=== PATIENT | female | born 1990 | race Caucasian/White ===

== ENCOUNTER 2019-07-21 16:36 | Outpatient (CLI) | payer MEDICAID, SELFPAY ==
[2019-07-21 17:01] VITALS: BMI 40.9
[2019-07-21 17:52] LABS: Add Urine Microscopic? NO
[2019-07-21 18:21] LABS: Bilirubin Urine Neg (NEGATIVE); Blood Urine Neg (Negative); Glucose Urine UA Norm (Normal); Ketones Urine Negative (Negative); Leukocyte Esterase Urine Negative (Negative); Nitrate Urine Negative (Negative); Protein Urine Neg (Negative); Specific Gravity, Urine 1.025 (1.005-1.030); Urine Appearance Clear (CLEAR); Urine Color Yellow (Yellow); Urobilinogen Urine 1 mg/dL (Negative); pH Urine 5 (5-7)
[2019-07-21 18:32] VITALS: BP 116/69; PULSE 90; RESP 18; TEMP 36.7
[2019-07-21 18:39] VITALS: BP 116/69; PULSE 90; RESP 18; TEMP 36.7
== END 2019-07-21 18:52 | disposition home or self-care (01) ==
LOC: OPOB 16:54 → OBGYN 18:41 → OPOB 07-24 17:37
PROVIDERS: Family Provider Family Medicine; PCP Family Medicine; Visit Provider Family Medicine
DX: O26.899 Other specified pregnancy related conditions, unspecified trimester (principal); Z3A.00 Weeks of gestation of pregnancy not specified; R10.9 Unspecified abdominal pain
CPT/HCPCS: 81003; 99211

== ENCOUNTER 2019-09-06 16:00 | Outpatient (CLI) | payer MEDICAID, SELFPAY ==
[2019-09-06] VITALS (18 sets, daily range): BP systolic 0–134; BP diastolic 0–82; PULSE 87–109; TEMP 36.9; BMI 41.8
[2019-09-06 16:59] LABS: Nitrazine Paper, PH Negative
[2019-09-06 17:29] LABS: Urine Appearance Clear (CLEAR); Urine Color Yellow (Yellow); pH Urine 7 (5-7)
[2019-09-06 17:30] LABS: Add Urine Culture? No; Bacteria Urine 1+; Bilirubin Urine Neg (NEGATIVE); Blood Urine 2+ (Negative); Glucose Urine UA Norm (Normal); Ketones Urine Negative (Negative); Leukocyte Esterase Urine Trace (Negative); Mucus Urine 1+; Nitrate Urine Negative (Negative); Protein Urine Neg (Negative); RBC Urine 0-4 /hpf (0-2); Urobilinogen Urine Norm (Negative)
--- NOTE | 2019-09-06 18:02 | PC.NURSE ---
PT IS HARD OF HEARING
[2019-09-09 08:21] VITALS: BP 118/73; PULSE 112
== END 2019-09-06 19:30 | disposition home or self-care (01) ==
LOC: OPOB 16:32 → OBGYN 17:12 → OPOB 09-09 08:06
PROVIDERS: Family Provider Family Medicine; PCP Family Medicine; Visit Provider Family Medicine
DX: O26.899 Other specified pregnancy related conditions, unspecified trimester (principal); Z3A.00 Weeks of gestation of pregnancy not specified; R10.9 Unspecified abdominal pain
CPT/HCPCS: 81001; 83986; 99211; A9270

== ENCOUNTER 2019-09-09 07:55 | Outpatient (CLI) | payer MEDICAID, SELFPAY ==
[2019-09-09 08:00] VITALS: BMI 42.0
[2019-09-09 08:30] VITALS: TEMP 36.9
[2019-09-09 09:33] VITALS: BP 109/69; PULSE 101; RESP 17; TEMP 36.9
== END 2019-09-09 09:33 | disposition home or self-care (01) ==
LOC: OPOB 08:37 → OBGYN 09:30 → OPOB 09-10 08:45
PROVIDERS: Family Provider Family Medicine; PCP Family Medicine; Visit Provider Family Medicine
DX: O26.899 Other specified pregnancy related conditions, unspecified trimester (principal); Z3A.00 Weeks of gestation of pregnancy not specified; N89.8 Other specified noninflammatory disorders of vagina
CPT/HCPCS: 59025; 59409; 83986; 99211; A9270

== ENCOUNTER 2019-09-10 00:43 | Inpatient (IN) | payer MEDICAID, SELFPAY ==
[2019-09-09 23:45] VITALS: RESP 18; TEMP 36.7
[2019-09-09 23:46] VITALS: BP 134/95; PULSE 107
[2019-09-09 23:47] VITALS: BP 128/77; PULSE 112
[2019-09-10] VITALS (25 sets, daily range): BP systolic 102–135; BP diastolic 55–80; PULSE 90–108; RESP 15–19; TEMP 36.5–37.1; O2SAT 96–99; BMI 41.7
[2019-09-10 00:14] LABS: Basophils # 0.1 10^3/uL (0.0-0.1); Basophils % 0.3 %; Eosinophils # 0.2 10^3/uL (0.0-0.8); Eosinophils % 1.1 %; Hematocrit 32.1 % (37.0-47.0); Hemoglobin 10.2 g/dL (11.5-15.3); Lymphocytes # 2.5 10^3/uL (0.8-4.8); Mean Corpuscular HGB Conc 31.8 g/dL (30.0-36.0); Mean Corpuscular Volume 84.9 fL (81-99); Mean Platelet Volume 10.9 fL (7.4-10.4); Monocytes # 1.4 10^3/uL (0.2-0.9); Monocytes % 7.8 %; Neutrophils # 13.2 10^3/uL (1.8-7.7); Neutrophils % 74.4 %; Nucleated Red Blood Cells % 0 %; Platelet Count 243 10^3/cmm (130-400); Red Blood Count 3.78 10^6/uL (4.1-5.3); Red Cell Distribution Width 14.7 % (12.1-15.1); White Blood Count 17.7 10^3/uL (4.0-10.0)
[2019-09-10] MEDS: metoclopramide 5 mg/mL SDV 2 mL 10 MG IV (00:18)
[2019-09-10] MEDS: lactated ringers 1,000 ML 999 ML IV ×2 (00:18→01:19)
[2019-09-10] MEDS: famotidine 20 mg/2 mL INJ IVP (00:18)
[2019-09-10] MEDS: citric acid-sodium citrate 30 mL UDC PO (00:18)
--- NOTE | 2019-09-10 00:18 | ANES.PREANE2 ---
Pre-Anesthetic Assessment Pre-Anesthetic Assessment: Height/Weight: Height 1.57 m Pulse BP 112 H 128/77 09/09/19 23:47 09/09/19 23:47 Preop Diagnosis: previous C section Proposed Procedure: C section Was [place] taken within 24 hours: N/A Last Intake: 22:30 Social: Social History: Tobacco (1) and No alcohol Packs per day: 1 Pack years: 4 Exam: Pre-Anes Outpt Exam: alert, oriented x 3, clear to auscultation bilaterally and regular rate & rhythm Airway: Submandibular: WNL Cervical ROM: WNL MP: 2 Dentition: Full Pulmonary: Pulmonary: Asthma CV/HEM: CV/HEM: None reported : : None reported Hepatic: Hepatic: None reported GI: GI: GERD Metabolic: Metabolic: None reported Musc/skel: Musc/skel: None reported Neuropsych: Neuropsych: Anxiety and Depression Anesthetic Plan: ASA status: 2E Anesthesia: Regional (specify below) (SAB) Risk of > 500 ml blood loss (7ml/kg in children): Yes, adequate IV access and fluids planned Data Anesthesia CBC & Chem 7: 09/09/19 00:01 Other Labs: Laboratory Results - last 48 hr 09/09/19 00:01 WBC 17.7 H RBC 3.78 L Hgb 10.2 L Hct 32.1 L MCV 84.9 MCH 27.0 L MCHC 31.8 RDW 14.7 Plt Count 243 MPV 10.9 H Neut % (Auto) 74.4 Lymph % (Auto) 14.0 [place] % (Auto) 7.8 Eos % (Auto) 1.1 Baso % (Auto) 0.3 Neut # (Auto) 13.2 H Lymph # (Auto) 2.5 [place] # (Auto) 1.4 H Eos # (Auto) 0.2 Baso # (Auto) 0.1 Nucleated RBC % (auto) 0 Nucleated RBCs # 0.0 Cardiac Studies: No Data to Display
--- NOTE | 2019-09-10 00:32 | PM.HP ---
Providers/Chief Complaint Primary Care Provider: Jayy Otto MD Chief Complaint: abd pain History of Present Illness Stephanie Rodriguez is a 29 year old female who has had 3 previous sections. She is 36 weeks and 3 days gestation. She presented late the evening of admission with contractions beginning about 6 PM. She arrived [facility] labor and delivery and was evaluated and found to be approximately 3 cm dilated and britney every 3 to 4 minutes. She has been in to OB the last couple of days approximately 3 times with contractions off and on but had made no cervical change prior to the evening of admission. There is been no significant problems through her course. She does desire tubal ligation and had discussed with this physician and then was Dr. Flores and signed a permit form on 08/21/2019. Review of Systems General: Reports: 10 or more systems reviewed and unremarkable except in HPI and below Const: Denies: fever, chills or fatigue ENMT: Denies: throat pain or dental pain Card: Denies: chest pain, palpitations, irregular heart rhythm or edema Resp: Denies: shortness of breath, productive cough or wheezing GI: Reports: abdominal pain (Contractions off and on.); Denies: painful bowel movements : Reports: pelvic pain (Contractions.); Denies: flank pain Musc: Reports: back pain; Denies: neck pain Neuro: Denies: headache, numbness in extremities, changes in sensation, difficulty walking or slurred speech Psych: Reports: anxiety Medications/Allergies Allergies Allergy/AdvReac Type Severity Reaction Status Date / Time azathioprine [From Imuran] Allergy ALGY-Hives Verified 07/21/19 17:04 Sulfa (Sulfonamide Allergy ALGY-Hives Verified 07/21/19 17:04 Antibiotics) vancomycin Allergy ALGY-Anaphy Verified 07/21/19 17:04 laxis Vitals/I&O/Wt Last Vital Signs Pulse 112 H 09/09/19 23:47 BP 128/77 09/09/19 23:47 Physical Exam Const: COMMON NORMALS: no apparent distress (Obviously uncomfortable with contractions.) HENMT: COMMON NORMALS: moist oral mucous membranes Neck/C-Spine: COMMON NORMALS: full ROM, no lymphadenopathy and supple Chest: COMMONS NORMALS: inspection of chest normal Resp: COMMON NORMALS: normal respiratory effort, no retractions, no use of accessory muscles and clear to auscultation bilaterally Cardio: COMMON NORMALS: no JVD, regular rate, regular rhythm and no murmurs GI: COMMON NORMALS: normal to inspection, nondistended, normoactive bowel sounds (Obviously .), soft to palpation and non-tender : COMMON NORMALS: Yes no CVA tenderness BIMANUAL EXAM - VAGINA & UTERUS: Yes normal bimanual exam (Approximate 3 cm dilated.) Extremity: COMMON NORMALS: normal to inspection, full ROM and no calf tenderness Neuro: COMMON NORMALS: oriented x3, CN's II-XII intact bilaterally, moves all extremities and no focal motor deficits Data : 09/09/19 00:01 A&P Assessment and plan (1) 36 weeks gestation of : 36 weeks and 3 days gestation. She is presently in active labor and requires urgent section. Status: Acute Code(s): Z3A.36 - 36 weeks gestation of (2) Active labor: Requires urgent section. Dr. Flores has been consulted. Status: Acute Code(s): O60.10X0 - labor with delivery, unspecified trimester, not applicable or unspecified Attestations Medical Necessity Statement*: Patient is an active labor at 36 weeks gestation and 3 previous sections. She requires full admission the hospital require a greater than 2 midnight hospital stay. Coding Level of Care Code Acute Door To Door Lead Generation for Chg Fwd Exam Comprehensive Diagnoses 36 weeks gestation of Z3A.36 Active labor O60.10X0
--- NOTE | 2019-09-10 01:55 | P.OP_ITS ---
Operative Report Date of procedure: September 10, 2019 Pre-op Diagnosis: previous C section, desires sterilization Post-op diagnosis: same Procedure Done: 1. Low transverse section 2. Intraoperative bilateral tubal ligation Specimens removed/disposition: 1. Female infant with a weight of 6 pounds 8 ounces and Apgars of 7 and 8 2. Presented with a three-vessel cord delivered intact 3. Bilateral fallopian tube segments with the right segment being tagged Surgeon: Mike Flores [employer] Department Manager: Jayy Otto Anesthesia: Other Estimated blood loss (mL): 500 Condition: stable Disposition: floor Brief History: Refer to history and physical Procedure: The patient was brought back to the operating room where she was prepped and draped in usual sterile fashion. Anesthesia was found to be adequate. A lower transverse skin incision was then made with a #10 blade. I then dissected down to the underlying subcutaneous tissue until arriving at the prerectal fascia. The fascia was then nicked with the scalpel bilaterally. The fascial incisions were then carried laterally with Hearn scissors. Attention was then turned to the superior aspect of the incision which was grasped with kochers and tented up away from the underlying rectus abdominis muscles. The muscles were then dissected away from the fascia manually, and later with Hearn scissors. Attention was then turned to the inferior aspect of the incision, and the fascia was dissected away from the underlying muscle in similar fashion. The rectus abdominis muscles were then spread manually. The peritoneum was entered manually. Excellent visualization of the uterus was noted. A lower transverse uterine incision was then made with a #10 blade. Upon arriving at the intrauterine cavity, the uterine incision was then extended manually. The infant was noted to be in vertex position. The uterus was very narrow at the lower transverse segment. As result I used a soft cup Kiwi vacuum to assist in delivery of the infant. After delivery of the head, the mouth and nose were suctioned at the site of the incision. There was no meconium. There was no nuchal cord. The remainder of the body was then delivered and placed on the abdomen. The cord was cut and clamped. The baby was then handed to the waiting nurse. The placenta was removed intact. The uterus was externalized. The intrauterine cavity was cleansed of any remaining debris. The uterine incision was reapproximated in 2 layers. The first layer was performed with 0 Vicryl in a running locked stitch. The second layer was an imbricating stitch also using 0 Vicryl. Attention was then turned to the fallopian tubes. The right fallopian tube was identified and followed through to the fimbria. I then ligated cut and cauterized the tube with 0 chromic using a modified Rheems technique. Attention was then turned to the left fallopian tube which was also ligated cut and cauterized in similar fashion. The uterus was replaced into the abdomen. The peritoneum was then irrigated with warm saline. I reexamined the uterine incision and found it to be hemostatic. The rectus abdominis muscles were then reapproximated using 0 Vicryl in a running stitch. The fascia was then reapproximated using 0 Vicryl in running stitch. The subcutaneous tissue was then reapproximated using 0 Vicryl in a running stitch. The skin was reapproximated using tori. A sterile dressing was placed. All counts were correct x2. Both the mother and baby were in stable condition.
[2019-09-10 02:25] LABS: Amphetamines Screen Urine Negative (Negative); Barbiturates Screen Urine Negative (Negative); Benzodiazepines Screen Urine Negative (Negative); Cocaine Screen Urine Negative (Negative); Opiate Screen Urine Negative (Negative); PCP Screen Urine Negative (Negative); THC Screen Urine Negative (Negative)
[2019-09-10] MEDS: dextrose 5%-lactated ringers 1,000 ML 125 ML IV (03:13)
[2019-09-10] MEDS: ketorolac 30 mg/mL INJ IVP ×2 (03:30→08:46)
[2019-09-10] MEDS: morphine 4 mg/mL SDV 1 mL IVP (03:30)
[2019-09-10] MEDS: prenatal vitamin Capsule 1 CAP PO (08:46)
[2019-09-10] MEDS: docusate sodium 100 mg Capsule PO ×2 (08:46→17:09)
[2019-09-10] MEDS: HYDROcodone-acetaminophen 5-325 mg Tablet PO ×3 (10:56→21:10)
--- NOTE | 2019-09-10 11:41 | PC.NURSE ---
BREASTFEEDNG MOM CONCERNED BABY HAS NOT TAKEN HER RIGHT SIDE. BABY WAS NURSING ON THE LEFT SIDE NOW. REMOVED FROM THE LEFT SIDE. CHANGED BABY DIAPER AND OFFERED THE RIGHT SIDE. BABY TOOK IT FULLY AND QUICKLY. MOM'S RIGHT BREAST HAS A DOUBLE NIPPLE. THE SECOND ONE IS JUST BELOW THE MAIN NIPPLE AND IT LOOKS LIKE A LARGE SKIN TAG. MOM SAYS MILK DOES COME OUT OF IT. BABY JUST TOOK BOTH ONE WITHOUT PROBLEMS
[2019-09-10 14:46] LABS: Hematocrit 34.3 % (37.0-47.0); Hemoglobin 10.8 g/dL (11.5-15.3); Mean Corpuscular HGB Conc 31.5 g/dL (30.0-36.0); Mean Corpuscular Volume 88.9 fL (81-99); Platelet Count 222 10^3/cmm (130-400); Red Blood Count 3.86 10^6/uL (4.1-5.3); Red Cell Distribution Width 14.7 % (12.1-15.1); White Blood Count 16.2 10^3/uL (4.0-10.0)
[2019-09-10] MEDS: alum-mag-hydroxide-sime 30 mL UDC PO (18:10)
[2019-09-11] MEDS: HYDROcodone-acetaminophen 5-325 mg Tablet PO ×2 (04:58→09:09)
[2019-09-11 06:46] VITALS: BP 120/80; PULSE 98; RESP 16; TEMP 36.7
--- NOTE | 2019-09-11 07:44 | P.DS_ITS ---
Discharge Providers SOCIAL SERVICES SPECIALIST Date of Admission: 09/10/19 00:43 Date of Discharge: 09/11/19 Attending Provider at Admission: Mike Flores MD Attending Provider at Discharge: Mike Flores MD Primary Care Provider: Jayy Otto MD Diagnoses at Discharge Discharge Diagnosis (1) 36 weeks gestation of : Status: Acute (2) Active labor: Status: Acute Reason for Visit Reason for Visit: Reason For Visit: abd pain Hospital Course Hospital Course: The patient presented to the hospital in active labor. She was making cervical change, so the decision was made to proceed with a repeat section. She also desired a tubal ligation. Her and intraoperative tubal ligation were unremarkable. Her course was unremarkable. Her pain was well controlled. Her bleeding was light. She passed gas. She tolerated a regular diet. She ambulated without difficulty. Information Peripartum Data: Infant Delivery Method: Section Physical Exam Narrative: EXAM NARRATIVE: She is in no acute distress Lungs are clear auscultation bilaterally Her heart has a regular rate and rhythm Her fundus is below the umbilicus and firm Her dressing is clean, dry and intact Her extremities have trace edema Urinary Catheter Management^: Lopez: Cath Placed During This Visit: yes, but has since been removed by the nurse Reason for Continuing Indwelling Catheter: Does Not Meet Criteria Urinary Catheter Date of Insertion: 09/10/19 Urinary Catheter Time of Insertion: 00:44 Date Urinary Catheter Removed: 09/10/19 Time Urinary Catheter Discontinued: 12:00 Discharge Data Data Completed and Pending: Pending at discharge Category Date Time Status Pathology: Surgic al [PTH] Routine Pth 09/10/19 13:27 Received Labs from last 24 hours 09/10/19 14:36 WBC 16.2 H RBC 3.86 L Hgb 10.8 L Hct 34.3 L MCV 88.9 MCH 28.0 MCHC 31.5 RDW 14.7 Plt Count 222 MPV 11.0 H Vitals: Last Vital Signs Temp 98.0 F 09/11/19 06:46 Pulse 98 09/11/19 06:46 Resp 16 09/11/19 06:46 BP 120/80 09/11/19 06:46 Pulse Ox 96 09/10/19 22:00 Discharge Plan Discharge Patient Disposition: Home, Self-Care Condition: Stable Prescriptions: New ibuprofen 800 mg Tablet 800 mg PO TID Qty: 45 RF: 0 hydrocodone-acetaminophen 5-325 mg Tablet 1 tab PO Q4H PRN (Reason: Moderate To Severe Pain) Qty: 30 RF: 0 Continued Vitamin RF: 0 Discontinued Tylenol-Codeine #3 RF: 0 ranitidine HCl RF: 0 Discharge Orders: Discharge Order (Routine); Ordered 09/11/19 Ordered By: Mike Flores Referrals: Mike Flores MD [Physician] - 7-10 days (Follow-up with Dr. Otto in 6 weeks. If she is unable to make it back to see me for an incision check next week, she should see someone in [place] where she should have her tori removed and Steri-Strips placed.) Discharge Diet: Regular Discharge Activity: Limit activity as instructed Discharge Attestations SOCIAL SERVICES SPECIALIST Time Spent in Discharge Care*: less than 30 min Status at Discharge: Behavioral status at discharge: cooperative , Functional status at discharge: independent ambulation Coding Level of Care Code Acute Rubber Calender Helper for [facility] Fwd Diagnoses 36 weeks gestation of Z3A.36 Active labor O60.10X0
[2019-09-11] MEDS: docusate sodium 100 mg Capsule PO (09:05)
[2019-09-11] MEDS: ferrous sulfate EC 325 mg Tablet PO (09:05)
[2019-09-11] MEDS: prenatal vitamin Capsule 1 CAP PO (09:06)
[2019-09-11 11:21] VITALS: BP 123/74; PULSE 112; RESP 18; TEMP 37; O2SAT 96
== END 2019-09-11 11:42 | disposition home or self-care (01) | DRG 785 ==
LOC: OBGYN 08:44 → OPOB 08:44
PROVIDERS: Admitting Provider Family Medicine; Family Provider Family Medicine; PCP Family Medicine; Visit Provider Family Medicine
PROC: 10D00Z1 Extraction of Products of Conception, Low, Open Approach (ICD-10-PCS; CPT 59514; principal; 2019-09-10 00:50)
DX: O34.219 Maternal care for unspecified type scar from previous cesarean delivery (principal); Z37.0 Single live birth; Z30.2 Encounter for sterilization; O99.613 Diseases of the digestive system complicating pregnancy, third trimester; O99.513 Diseases of the respiratory system complicating pregnancy, third trimester; O99.344 Other mental disorders complicating childbirth; O99.334 Smoking (tobacco) complicating childbirth; J45.909 Unspecified asthma, uncomplicated; K21.9 Gastro-esophageal reflux disease without esophagitis; F41.8 Other specified anxiety disorders; F32.9 Major depressive disorder, single episode, unspecified; F17.210 Nicotine dependence, cigarettes, uncomplicated; Z3A.36 36 weeks gestation of pregnancy; Z79.51 Long term (current) use of inhaled steroids
CPT/HCPCS: 12345; 36415; 51702; 59025; 59409; 80307; 85025; 85027; 88302; 96375; 98960; 99211; J0690; J1885; J2270; J2274; J2590; J2765; J3490

== ENCOUNTER → 2020-06-19 11:21 | Outpatient (BNVA) | payer MEDICAID, SELFPAY | PROVIDERS: Family Provider Family Medicine; PCP Family Medicine; Visit Provider Family Medicine Adult Medicine | DX: D64.9 Anemia, unspecified (principal); F51.02 Adjustment insomnia; F41.9 Anxiety disorder, unspecified; F32.9 Major depressive disorder, single episode, unspecified | CPT/HCPCS: 80053; 84443; 85025 ==

== ENCOUNTER → 2020-09-11 12:06 | Outpatient (BNVA) | payer BC, MEDICAID, SELFPAY | PROVIDERS: Family Provider Family Medicine; PCP Family Medicine; Visit Provider Nurse Practitioner | DX: M79.671 Pain in right foot (principal) | CPT/HCPCS: 73630 ==

== ENCOUNTER → 2020-10-10 14:17 | Outpatient (BNVA) | payer BC, MEDICAID, SELFPAY | PROVIDERS: Family Provider Family Medicine; PCP Family Medicine; Visit Provider Nurse Practitioner | DX: R10.9 Unspecified abdominal pain (principal) | CPT/HCPCS: 85025 ==

== ENCOUNTER 2020-10-15 10:10 | Outpatient (CLI) | payer BC, MEDICAID, SELFPAY ==
[2020-10-15] MEDS: iohexol 300 mg/mL 100 mL Btl IV (10:36)
--- NOTE | 2020-10-15 11:30 | CT_ITS ---
WS: [id number] CT ABDOMEN AND PELVIS WITH CONTRAST HISTORY: Diffuse abdominal pain and periumbilical pain. TECHNIQUE: Imaging performed of the abdomen and pelvis with IV contrast. Single phase imaging of the abdomen. Coronal and sagittal reformats are submitted. All CT scans at [facility] use at least one of these dose optimization techniques: automated exposure control; mA and/or kV adjustment per patient size (includes targeted exams where dose is matched to clinical indication); or iterativ e reconstruction. IV CONTRAST: Omnipaque 300; 95 mL IV. Oral contrast: No DLP: 1636.23 mGy.cm COMPARISON: 07/21/2012 Lower thorax: Lung bases are clear. Heart is normal size. No hiatal hernia. Liver/biliary system: Normal size with no intrahepatic dilatation. Gallbladder: Normal. No gallstones or wall thickening. No pericholecystic fluid. Pancreas: Normal. Spleen: Normal. Adrenal glands: Normal. Right kidney: Normal. Left kidney: Normal. Aorta: Normal. Lymphadenopathy: None. Free fluid: None. GI tract: Normal stomach. There is diffuse moderate to severe retained fecal material throughout the entire colon and constipation. Normal appendix. No mucosal thickening or edema. Abdominal wall: Unremarkable abdominal wall. No hernia. Pelvis: Normal size anteverted uterus. Small ovarian follicles. No free fluid in the pelvis. Urinary bladder is negative. Bones: Unremarkable. CT/CT abdomen pelvis w con* [id number] IMPRESSION: 1. No acute abdominal or pelvic abnormalities. 2. Moderate to severe diffuse constipation. 3. Normal appendix.
== END 2020-10-15 10:11 | disposition home or self-care (01) ==
LOC: RAD 10:16
PROVIDERS: PCP Family Medicine; Visit Provider Nurse Practitioner
DX: R10.9 Unspecified abdominal pain (principal); R10.33 Periumbilical pain; K59.00 Constipation, unspecified
CPT/HCPCS: 74177

== ENCOUNTER 2020-11-23 16:13 | Emergency (ER) | payer BC, MEDICAID, SELFPAY ==
[2020-11-23 16:31] VITALS: BP 94/57; PULSE 102; RESP 16; TEMP 36.5; O2SAT 98; BMI 27.4
--- NOTE | 2020-11-23 18:28 | US_ITS ---
WS: [id number] RIGHT UPPER QUADRANT ULTRASOUND HISTORY: abd pain COMPARISON: 06/07/2019 Liver: 16.2 cm in length. Mildly enlarged liver with mild hepatic steatosis. No bile duct dilatation or mass. Gallbladder: Normally distended gallbladder with no stones or wall thickening. CBD: 0.2 cm Pancreas: Not visualized. Right kidney: 11.7 cm in length. Normal size and echogenicity. No hydronephrosis or mass. Aorta and IVC: Unremarkable abdominal aorta and IVC. No ascites. US/US gall bladder [id number] IMPRESSION: 1. Mild hepatomegaly and mild hepatic steatosis. 2. Negative gallbladder. 3. Pancreas is not visualized.
[2020-11-23 18:41] VITALS: RESP 18; O2SAT 100
[2020-11-23] MEDS: HYDROmorphone 1 mg/mL INJ 1 mL IVP (18:41)
[2020-11-23] MEDS: ondansetron 2 mg/ML SDV 2 mL 4 MG IVP (18:42)
[2020-11-23] MEDS: sodium chloride 0.9% 1,000 ML 999 ML IV (18:42)
--- NOTE | 2020-11-23 18:47 | ED_ITS ---
HPI - Abdominal Pain General: Chief Complaint: Abdominal Pain Stated Complaint: Stomach Pains Time Seen by Provider: 11/23/20 18:20 Source: patient Mode of arrival: ambulatory Limitations: no limitations History of Present Illness: HPI narrative: 22-year-old female states she has been having abdominal pain off and on for the last few months. States it is gotten worse this week and is mainly in her right upper quadrant. She states the pain is sharp nature currently rates it a 7 out of 10. She had a CT scan done October 15 showed constipation otherwise was normal. Denies any vomiting diarrhea. Denies any worsening factors. Denies any improving factors. She has had no fevers. Associated Symptoms: Denies chills, dysuria and fever(s) Related Data: Date of Last Menstrual Period: 10/21/20 Review of Systems Const: Denies: fever(s), chills, body aches or change in appetite Eyes: Denies: blurry vision or eye discomfort ENMT: Denies: throat pain or dental pain Card: Denies: chest pain Resp: Denies: dyspnea GI: Reports: abdominal pain : Denies: dysuria Musc: Denies: neck pain or back pain Skin/Breast: Denies: rash Neuro: Denies: headache(s) Psych: Denies: depression Enmanuel/Lymph: Denies: easy bruising All/Imm: Denies: urticaria PFSH ED PFSH: Medical History Adjustment insomnia Anxiety and depression Depression Severe hearing loss Suicidal behavior with attempted self-injury Surgical History History of delivery Female Reproductive History: Date of last menstrual period: 10/21/20 Physical Exam Const: COMMON NORMALS: no acute distress, patient oriented x3 and healthy appearing HENMT: COMMON NORMALS: normocephalic and atraumatic HEAD & SCALP: normocephalic and atraumatic Eye: COMMON NORMALS: Equal, round and reactive pupils present and EOMs intact bilaterally PUPIL: Yes Equal, round and reactive pupils present Neck/C-Spine: COMMON NORMALS: full ROM and supple Chest: COMMONS NORMALS: normal inspection of the chest and normal palpation of entire chest wall Resp: COMMON NORMALS: normal respiratory effort, No retractions, No use of accessory muscles and clear to auscultation bilaterally AUSCULTATION: clear to auscultation bilaterally Cardio: COMMON NORMALS: regular rate, regular rhythm and No murmurs present (Cardio) RATE: regular rate RHYTHM: regular rhythm GI: COMMON NORMALS: Normal to inspection, nondistended, normoactive bowel sounds present, Soft to palpation, non-tender and no masses PALPATION: Yes Soft to palpation and Yes Tenderness to palpation present (GI) Details: RUQ (mild) Extremity: COMMON NORMALS: normal to inspection and full ROM Neuro: COMMON NORMALS: patient oriented x3, moves all extremities and no focal motor deficits Psych: COMMON NORMALS: mental status grossly normal, Normal thought process present and cooperative THOUGHT PROCESS: Normal thought process present Skin: COMMON NORMALS: no rashes or lesions noted and no wounds GENERAL SKIN EXAM: no rashes or lesions noted Course Vital Signs: Vital signs: Vital Signs Temperature 97.7 F 11/23/20 16:31 Pulse Rate 97 11/23/20 22:05 Respiratory Rate 18 11/23/20 22:05 Blood Pressure 103/62 11/23/20 22:05 Pulse Oximetry 96 11/23/20 22:05 MDM - Abdominal Pain MDM Narrative: Medical decision making narrative: Patient presents here with pyelonephritis. She is tolerating p.o. and is well-appearing here. She is stable for discharge and will start her on antibiotics for home. I did give her instructions for Cipro including the increased risks of tendon rupture and informed her to do no heavy lifting or extraneous activity. She understands this. She is return if she has any worsening symptoms. She understands agrees the plan. Lab Data: Labs: Lab Results 11/23/20 11/23/20 11/23/20 Range/Units 18:44 18:44 20:11 WBC 14.2 H (4.0-10.0) 10^3/ uL RBC 4.43 (4.1-5.3) 10^6/u L Hgb 12.4 (11.5-15.3) g/dL Hct 38.8 (37.0-47.0) % MCV 87.6 (81-99) fL MCH 28.0 (28.0-34.0) pg MCHC 32.0 (30.0-36.0) g/dL RDW 13.1 (12.1-15.1) % Plt Count 344 (130-400) 10^3/c mm MPV 10.1 (7.4-10.4) fL Neut % (Auto) 73.9 % Lymph % (Auto) 13.5 % Williamson % (Auto) 10.8 % Eos % (Auto) 0.6 % Baso % (Auto) 0.4 % Neut # (Auto) 10.49 H (1.8-7.7) 10^3/u L Lymph # (Auto) 1.9 (0.8-4.8) 10^3/u L Williamson # (Auto) 1.5 H (0.2-0.9) 10^3/u L Eos # (Auto) 0.1 (0.0-0.8) 10^3/u L Baso # (Auto) 0.1 (0.0-0.1) 10^3/u L Nucleated RBC % (a uto) 0 % Nucleated RBCs # 0.0 /100WBC Sodium 134 L (136-145) mmol/L Potassium 3.9 (3.5-5.1) mmol/L Chloride 94 L (98-107) mmol/L Carbon Dioxide 29 (22-29) mmol/L Anion Gap 14.9 (5-19) BUN 9 (6-20) mg/dL Creatinine 0.7 (0.5-0.9) mg/dL GFR Calculation 99.6 (90-130) mL/min Glucose 167 H (65-115) mg/dL Calculated Osmolal ity 280 L (285-295) mOsm/k g Calcium 9.2 (8.5-10.5) mg/dL Total Bilirubin 0.4 (0.15-1.2) mg/dL AST 13 (0-32) U/L ALT 13 (0-33) U/L Alkaline Phosphata se 104 (35-105) IU/L Total Protein 7.7 (6.6-8.7) g/dL Albumin 3.8 (3.5-5.2) g/dL Globulin 3.9 (1.3-4.6) g/dL Lipase 9 L (13-60) U/L HCG, Qual Negative (Negative) Urine Color (Yellow) Urine Appearance (CLEAR) Urine pH (5-7) Ur Specific Gravit y (1.005-1.030) Urine Protein (Negative) Urine Glucose (UA) (Normal) Urine Ketones (Negative) Urine Blood (Negative) Urine Nitrate (Negative) Urine Bilirubin (Negative) Urine Urobilinogen (Negative) mg/dL Ur Leukocyte Trini ase (Negative) Urine RBC (0-2) /hpf Urine WBC (0-5) /hpf Ur Squamous Epith Cells (0-5) /hpf Amorphous Sediment Urine Bacteria (NONE) /hpf Urine Mucus /hpf 11/23/20 Range/Units 20:11 WBC (4.0-10.0) 10^3/ uL RBC (4.1-5.3) 10^6/u L Hgb (11.5-15.3) g/dL Hct (37.0-47.0) % MCV (81-99) fL MCH (28.0-34.0) pg MCHC (30.0-36.0) g/dL RDW (12.1-15.1) % Plt Count (130-400) 10^3/c mm MPV (7.4-10.4) fL Neut % (Auto) % Lymph % (Auto) % Williamson % (Auto) % Eos % (Auto) % Baso % (Auto) % Neut # (Auto) (1.8-7.7) 10^3/u L Lymph # (Auto) (0.8-4.8) 10^3/u L Williamson # (Auto) (0.2-0.9) 10^3/u L Eos # (Auto) (0.0-0.8) 10^3/u L Baso # (Auto) (0.0-0.1) 10^3/u L Nucleated RBC % (a uto) % Nucleated RBCs # /100WBC Sodium (136-145) mmol/L Potassium (3.5-5.1) mmol/L Chloride (98-107) mmol/L Carbon Dioxide (22-29) mmol/L Anion Gap (5-19) BUN (6-20) mg/dL Creatinine (0.5-0.9) mg/dL GFR Calculation (90-130) mL/min Glucose (65-115) mg/dL Calculated Osmolal ity (285-295) mOsm/k g Calcium (8.5-10.5) mg/dL Total Bilirubin (0.15-1.2) mg/dL AST (0-32) U/L ALT (0-33) U/L Alkaline Phosphata se (35-105) IU/L Total Protein (6.6-8.7) g/dL Albumin (3.5-5.2) g/dL Globulin (1.3-4.6) g/dL Lipase (13-60) U/L HCG, Qual (Negative) Urine Color Yellow (Yellow) Urine Appearance Hazy A (CLEAR) Urine pH 5 (5-7) Ur Specific Gravit y 1.015 (1.005-1.030) Urine Protein 1+ H (Negative) Urine Glucose (UA) Norm (Normal) Urine Ketones Negative (Negative) Urine Blood 3+ H (Negative) Urine Nitrate Positive H (Negative) Urine Bilirubin Neg (Negative) Urine Urobilinogen Norm (Negative) mg/dL Ur Leukocyte Trini ase 1+ H (Negative) Urine RBC 15-25 H (0-2) /hpf Urine WBC 25-40 H (0-5) /hpf Ur Squamous Epith Cells 5-10 H (0-5) /hpf Amorphous Sediment Not Reportable Urine Bacteria 3+ H (NONE) /hpf Urine Mucus 1+ /hpf Imaging Data ^: CT Abd/Pel: Attestation: I personally reviewed and interpreted this imaging study as follows: Radiologist's impression: [address] [address] [address] Scan Report Signed Patient: Stephanie Rodriguez Unit #: [id number] : [id number] Age/Sex: 30 / F ADM Date: 11/23/20 Loc: ER Room/Bed: Attending Dr: Ordering Provider/Ordering MD: Omaira Syed MD Date of Service: 11/23/20 Procedure(s): CT abdomen pelvis w con* [id number] Accession Number(s): [id number] Report Number: [id number] PROCEDURE INFORMATION: Exam: CT Abdomen And Pelvis With Contrast Exam date and time: 11/23/2020 8:24 PM Age: 30 years old Clinical indication: Abdominal pain; Localized; Right; Prior surgery; Surgery type: ; Additional info: Abd pain TECHNIQUE: Imaging protocol: Computed tomography of the abdomen and pelvis with contrast. Radiation optimization: All CT scans at this facility use at least one of these dose optimization techniques: automated exposure control; mA and/or kV adjustment per patient size (includes targeted exams where dose is matched to clinical indication); or iterative reconstruction. Contrast material: OMNI 300; Contrast volume: 95 ml; Contrast route: INTRAVENOUS (IV); COMPARISON: CT abdomen pelvis w con* [id number] 10/15/2020 10:49 AM RADIATION DOSE METRICS: Total DLP (mGy-cm): 1564.92 FINDINGS: There is atelectasis within the lung bases. The visualized bony structures are unremarkable. There is no liver mass. There is no intrahepatic biliary dilatation. No gallstones are seen within the gallbladder. The pancreas is unremarkable. The spleen is unremarkable. There is no adrenal mass. There is heterogeneous enhancement involving the upper pole of the right kidney. This is concerning for pyelonephritis. The left kidney enhances normally. No renal mass or calculi are seen. There is no hydronephrosis. The aorta is normal in caliber. The IVC is normal in caliber. There is no retroperitoneal adenopathy. There is no mesenteric adenopathy. The stomach is unremarkable. The small bowel loops in the upper abdomen are nondistended with no bowel wall thickening. Feces is seen throughout the colon. There is no thickening of the wall of the ascending, transverse or descending colons. There is a fat containing umbilical hernia. Within the pelvis: The appendix is not visualized to advantage. The bladder is unremarkable. The uterus is unremarkable. There is a small involuting right ovarian cyst. The left adnexa is unremarkable. There is no free fluid within the pelvis. There is no inguinal adenopathy. There is no pelvic adenopathy. The bowel loops within the pelvis are unremarkable. CT/CT abdomen pelvis w con* [id number] IMPRESSION: 1. The heterogeneous enhancement involving the upper pole of the right kidney consistent with pyelonephritis. No hydronephrosis. 2. No evidence for bowel obstruction or bowel wall thickening. 3. Small involuting right ovarian cyst. 4. The appendix is not visualized to advantage. Radiation Dose CTDIVOL = (mGy): DLP = 1564.92 Discharge Plan Discharge Patient Disposition: Home Clinical Impression: Pyelonephritis Condition: Stable Prescriptions: New hydrocodone-acetaminophen 5-325 mg tablet 1 tab PO Q6H PRN (Reason: pain) Qty: 14 RF: 0 ondansetron 4 mg tablet,disintegrating 4 mg PO Q6H PRN (Reason: nausea and vomiting) Qty: 14 RF: 0 Cipro 500 mg tablet 500 mg PO BID Qty: 14 RF: 0 No Action albuterol sulfate [Ventolin HFA] 90 mcg/actuation HFA aerosol inhaler 2 puff inhalation QID PRN (Reason: shortness of breath or wheezing) Qty: 6.7 RF: 0 pantoprazole [Protonix] 20 mg tablet,delayed release (DR/EC) 20 mg PO DAILY Qty: 14 RF: 0 venlafaxine 37.5 mg tablet 37.5 mg PO BID Qty: 40 RF: 0 buspirone 10 mg tablet 10 mg PO TID Qty: 90 RF: 0 hydroxyzine HCl 50 mg tablet 50 mg PO TID Qty: 90 RF: 0 zolpidem 10 mg tablet 10 mg PO BEDTIME PRN (Reason: insomia and for sleep) RF: 0 tramadol 50 mg Tablet 50 mg PO BID PRN (Reason: Pain) RF: 0 Tylenol Extra Strength 500 mg Tablet 500 mg PO QID PRN (Reason: Pain) RF: 0 ibuprofen 200 mg Tablet 200 - 400 mg PO Q6H PRN (Reason: PAIN/FEVER) RF: 0 Discharge Orders: Discharge ED (Routine); Ordered 11/23/20 Ordered By: Omaira Syed Referrals: Lemuel Edwards MD [Primary Care Provider] - 1-3 days Discharge Diet: Advance as tolerated Discharge Activity: Resume usual activity Patient Instructions: Acute Pyelonephritis (ED), Opioid Safety Coding Level of Care Code ED Eligibility Technician for Chg Fwd Exam Comprehensive
[2020-11-23 18:51] LABS: Basophils # 0.1 10^3/uL (0.0-0.1); Basophils % 0.4 %; Eosinophils # 0.1 10^3/uL (0.0-0.8); Eosinophils % 0.6 %; Hematocrit 38.8 % (37.0-47.0); Hemoglobin 12.4 g/dL (11.5-15.3); Lymphocytes # 1.9 10^3/uL (0.8-4.8); Lymphocytes % 13.5 %; Mean Corpuscular Volume 87.6 fL (81-99); Mean Platelet Volume 10.1 fL (7.4-10.4); Monocytes # 1.5 10^3/uL (0.2-0.9); Monocytes % 10.8 %; Neutrophils # 10.49 10^3/uL (1.8-7.7); Neutrophils % 73.9 %; Nucleated Red Blood Cells % 0 %; Platelet Count 344 10^3/cmm (130-400); Red Blood Count 4.43 10^6/uL (4.1-5.3); Red Cell Distribution Width 13.1 % (12.1-15.1); White Blood Count 14.2 10^3/uL (4.0-10.0)
--- NOTE | 2020-11-23 18:53 | CTR_ITS ---
PROCEDURE INFORMATION: Exam: CT Abdomen And Pelvis With Contrast Exam date and time: 11/23/2020 8:24 PM Age: 30 years old Clinical indication: Abdominal pain; Localized; Right; Prior surgery; Surgery type: ; Additional info: Abd pain TECHNIQUE: Imaging protocol: Computed tomography of the abdomen and pelvis with contrast. Radiation optimization: All CT scans at this facility use at least one of these dose optimization techniques: automated exposure control; mA and/or kV adjustment per patient size (includes targeted exams where dose is matched to clinical indication); or iterative reconstruction. Contrast material: OMNI 300; Contrast volume: 95 ml; Contrast route: INTRAVENOUS (IV); COMPARISON: CT abdomen pelvis w con* [id number] 10/15/2020 10:49 AM RADIATION DOSE METRICS: Total DLP (mGy-cm): 1564.92 FINDINGS: There is atelectasis within the lung bases. The visualized bony structures are unremarkable. There is no liver mass. There is no intrahepatic biliary dilatation. No gallstones are seen within the gallbladder. The pancreas is unremarkable. The spleen is unremarkable. There is no adrenal mass. There is heterogeneous enhancement involving the upper pole of the right kidney. This is concerning for pyelonephritis. The left kidney enhances normally. No renal mass or calculi are seen. There is no hydronephrosis. The aorta is normal in caliber. The IVC is normal in caliber. There is no retroperitoneal adenopathy. There is no mesenteric adenopathy. The stomach is unremarkable. The small bowel loops in the upper abdomen are nondistended with no bowel wall thickening. Feces is seen throughout the colon. There is no thickening of the wall of the ascending, transverse or descending colons. There is a fat containing umbilical hernia. Within the pelvis: The appendix is not visualized to advantage. The bladder is unremarkable. The uterus is unremarkable. There is a small involuting right ovarian cyst. The left adnexa is unremarkable. There is no free fluid within the pelvis. There is no inguinal adenopathy. There is no pelvic adenopathy. The bowel loops within the pelvis are unremarkable. CT/CT abdomen pelvis w con* [id number] IMPRESSION: 1. The heterogeneous enhancement involving the upper pole of the right kidney consistent with pyelonephritis. No hydronephrosis. 2. No evidence for bowel obstruction or bowel wall thickening. 3. Small involuting right ovarian cyst. 4. The appendix is not visualized to advantage. Radiation Dose CTDIVOL = (mGy): DLP = 1564.92 (mGy-cm)
[2020-11-23] MEDS: metoclopramide 5 mg/mL SDV 2 mL 10 MG IVP (19:10)
[2020-11-23] MEDS: diphenhydrAMINE 50 mg/mL SDV 1mL IVP (19:10)
[2020-11-23 19:12] LABS: Alanine Aminotransferase 13 U/L (0-33); Albumin Level 3.8 g/dL (3.5-5.2); Alkaline Phosphatase 104 IU/L (35-105); Anion Gap 14.9 (5-19); Aspartate Amino Transferase 13 U/L (0-32); Blood Urea Nitrogen 9 mg/dL (6-20); Calcium 9.2 mg/dL (8.5-10.5); Carbon Dioxide 29 mmol/L (22-29); Chloride 94 mmol/L (98-107); Globulin 3.9 g/dL (1.3-4.6); Glomerular Filtration Rate 99.6 mL/min (90-130); Glucose 167 mg/dL (65-115); Lipase 9 U/L (13-60); Osmolality Calculated 280 mOsm/kg (285-295); Potassium 3.9 mmol/L (3.5-5.1); Sodium 134 mmol/L (136-145); Total Bilirubin 0.4 mg/dL (0.15-1.2); Total Protein 7.7 g/dL (6.6-8.7)
[2020-11-23 19:13] VITALS: BP 111/60; PULSE 103; RESP 18; O2SAT 98
[2020-11-23 20:18] LABS: HCG Qualitative Urine. Negative (Negative)
[2020-11-23 20:25] LABS: Add Urine Microscopic? YES; Bilirubin Urine Neg (Negative); Blood Urine 3+ (Negative); Glucose Urine UA Norm (Normal); Ketones Urine Negative (Negative); Leukocyte Esterase Urine 1+ (Negative); Nitrate Urine Positive (Negative); Protein Urine 1+ (Negative); Specific Gravity, Urine 1.015 (1.005-1.030); Urine Appearance Hazy (CLEAR); Urine Color Yellow (Yellow); Urobilinogen Urine Norm (Negative); pH Urine 5 (5-7)
[2020-11-23 20:26] LABS: Add Urine Culture? Yes; Bacteria Urine 3+ /hpf; Mucus Urine 1+ /hpf; RBC Urine 15-25 /hpf (0-2); WBC Urine 25-40 /hpf (0-5)
[2020-11-23] MEDS: iohexol 300 mg/mL 100 mL Btl IV (20:32)
[2020-11-23 21:16] VITALS: BP 105/55; PULSE 84; RESP 18; O2SAT 98
[2020-11-23] MEDS: cefTRIAXone 1,000 MG in sodium chloride 0.9% (plus) 50 ML 100 MG IV (21:16)
[2020-11-23 22:05] VITALS: BP 103/62; PULSE 97; RESP 18; O2SAT 96
== END 2020-11-23 22:08 | disposition home or self-care (01) ==
PROVIDERS: Emergency Provider Emergency Medicine; PCP Family Medicine Adult Medicine
DX: N12 Tubulo-interstitial nephritis, not specified as acute or chronic (principal)
CPT/HCPCS: 74177; 76705; 80053; 81001; 81025; 83690; 85025; 87077; 87086; 87186; 96365; 96375; 99284; J0696; J1170; J1200; J2405; J2765; J7030; Q9967

== ENCOUNTER → 2022-05-02 11:11 | Outpatient (BNVA) | payer BC, SELFPAY | PROVIDERS: PCP Family Medicine Adult Medicine; Visit Provider Nurse Practitioner Psychiatric/Mental Health | DX: Z03.89 Encounter for observation for other suspected diseases and conditions ruled out (principal) | CPT/HCPCS: 80053; 80306; 85025 ==

== ENCOUNTER 2022-07-09 19:01 | Emergency (ER) | payer BC, MEDICAID, SELFPAY ==
[2022-07-09 19:13] VITALS: BP 135/71; PULSE 80; RESP 16; TEMP 35.8; O2SAT 95
--- NOTE | 2022-07-09 19:30 | W.ED.DENTAL ---
HPI - Dental/Oral General: Chief complaint: Dental/Oral Stated complaint: tooth pian Time Seen by Provider: 07/09/22 19:28 History of Present Illness: Patient comes in today with complaints of right third molar pain. Patient appears nontoxic. Patient appears in moderate pain. Patient was seen earlier today and was started on Augmentin. Associated symptoms: Denies fever(s) Review of Systems Const: Denies: fever(s) ENMT: Reports: dental pain PFSH ED PFSH: Medical History (Updated 07/09/22 @ 19:40 by MAGGI Norman) Adjustment insomnia Anxiety and depression Back soft tissue injury Carpal tunnel syndrome, bilateral Major depressive disorder, recurrent severe without psychotic features Methamphetamine dependence last use 04/02/22 Otitis media Psychiatric care Severe hearing loss Suicidal behavior with attempted self-injury Surgical History History of delivery Social History Smoking and tobacco status: current every day smoker Female Reproductive History: Date of last menstrual period: 10/21/20 Physical Exam Const: COMMON NORMALS: alert HENMT: NOSE: Normal nares present TEETH & GINGIVA: Yes caries and Yes other (Swelling and tenderness to the third molar, right lower jaw) Neck/C-Spine: COMMON NORMALS: full ROM Resp: COMMON NORMALS: normal respiratory effort and clear to auscultation bilaterally AUSCULTATION: clear to auscultation bilaterally Cardio: COMMON NORMALS: regular rate and regular rhythm RATE: regular rate RHYTHM: regular rhythm Extremity: COMMON NORMALS: normal to inspection Neuro: SENSORIUM/ORIENTATION: Yes alert Skin: COMMON NORMALS: turgor normal GENERAL SKIN EXAM: turgor normal Procedures Nerve Block Nerve Block 1: Local Anesthetic: lidocaine 1% Amount of anesthesia used (mL): 3 Nerve Blocks: other (Infra alveolar) Procedure Successful: Yes Patient Tolerated Procedure: well Course Vital Signs: Vital signs: Vital Signs Temperature 96.5 F L 07/09/22 19:13 Pulse Rate 80 07/09/22 19:13 Respiratory Rate 16 07/09/22 19:13 Blood Pressure 135/71 07/09/22 19:13 Pulse Oximetry 95 07/09/22 19:13 Oxygen Delivery Me thod 07/09/22 19:13 MDM - Dental/Oral Medical Decision Making Patient comes in today for complaints of dental pain. On exam patient has dental tenderness to the right third molar on the lower jaw. Palpation of the soft tissue notes a abscess laterally to the third molar. Decay of the third molar is noted. Differential diagnosis includes but not limited to dental caries, dentalgia, dental abscess. Patient has a dental abscess with poor pain control. Patient was given a dental block with improvement of pain control. Patient was written for some tramadol for pain control as antibiotic works. Patient already been seen today and started on Augmentin and will continue with the Augmentin. Patient reported understanding of care plan need for follow-up or return to the ER. Discharge Plan Discharge Patient Disposition: Home Clinical Impression: Pain, dental Condition: Stable Prescriptions: New tramadol 50 mg tablet 50 mg PO Q8H PRN (Reason: pain) Qty: 7 0RF No Action albuterol sulfate [Ventolin HFA] 90 mcg/actuation HFA aerosol inhaler 2 puff inhalation QID PRN (Reason: shortness of breath or wheezing) Qty: 6.7 3RF mupirocin 2 % ointment 1 applic topical BID Qty: 22 0RF amoxicillin-pot clavulanate 875-125 mg tablet 1 tab PO BID 10 Days Qty: 20 0RF fluticasone propionate 50 mcg/actuation spray,suspension See Rx Instructions .ROUTE .COMPLEX Qty: 16 1RF Dose Instruction: SPRAY 1 SPRAY INTO EACH NOSTRIL EVERY DAY Rx Instructions: SPRAY 1 SPRAY INTO EACH NOSTRIL EVERY DAY meloxicam 7.5 mg tablet 7.5 mg PO BIDWMEAL Qty: 60 5RF buspirone 10 mg tablet 10 mg PO TID Qty: 90 3RF Rx Instructions: Take one tablet three times per day duloxetine [Cymbalta] 30 mg capsule,delayed release(DR/EC) 30 mg PO .morning Qty: 30 3RF Rx Instructions: Take one capsule every morning hydroxyzine pamoate 25 mg capsule 25 mg PO TID PRN (Reason: anxiety) Qty: 90 3RF Rx Instructions: Take one capsule three times per day as needed for anxiety Tylenol Extra Strength 500 mg Tablet 500 mg PO QID PRN (Reason: Pain) Discharge Orders: Discharge ED (Routine); Ordered 07/09/22 Ordered By: Nilton Harmon Referrals: Lemuel Edwards MD [Primary Care Provider] - Discharge Diet: Usual diet Discharge Activity: Increase activity as tolerated Patient Instructions: Toothache (ED), Opioid Safety, Pain Management Activity Restrictions/Additional Instructions: Use ice or heat to the area for comfort. Drink plenty of water. Take antibiotic as directed. Use prescription medication as prescribed. Follow-up with primary care as needed. Follow-up with dentist for definitive care. Return to ER for new concerns. Coding Level of Care Code ED Fluorescent Solution Mixer for Maddi Bhatti
[2022-07-09] MEDS: TRAMadol 50 mg Tablet 100 MG PO (20:12)
== END 2022-07-09 20:15 | disposition home or self-care (01) ==
PROVIDERS: Emergency Provider Nurse Practitioner Family; PCP Family Medicine Adult Medicine
DX: K08.89 Other specified disorders of teeth and supporting structures (principal); F17.210 Nicotine dependence, cigarettes, uncomplicated
CPT/HCPCS: 64400; 99283

== ENCOUNTER → 2022-10-14 14:33 | Outpatient (BNVA) | payer BC, SELFPAY | PROVIDERS: PCP Family Medicine Adult Medicine; Visit Provider Nurse Practitioner Psychiatric/Mental Health | DX: Z79.899 Other long term (current) drug therapy (principal) | CPT/HCPCS: 80053; 80061; 83036; 85025 ==

== ENCOUNTER 2023-04-05 07:16 | Emergency (ER) | payer BC, MEDICAID, SELFPAY ==
[2022-11-01 16:50] VITALS: BP 122/73; BMI 39.9
[2023-04-05 07:24] VITALS: BP 115/88; PULSE 88; RESP 18; TEMP 37; O2SAT 97; BMI 42.7
--- NOTE | 2023-04-05 07:32 | W.ED.EXTPRO ---
HPI - Extremity Problem General: Chief complaint: Extremity Injury, Upper Stated complaint: spot LT armpit Time Seen by Provider: 04/05/23 07:17 Source: patient Mode of arrival: ambulatory Limitations: no limitations History of Present Illness: 33 yo female thats states she has had pain and redness to her left armpit over last 3 days. Seen urgent care 2 days ago and placed on keflex. States that last night she popped an area in her armpit and had some purulent drainage. has had worse pain today. Denies fevers Associated symptoms: Deny chest pain or fever(s) Review of Systems Const: Denies: fever(s), chills, body aches or change in appetite ENMT: Denies: throat pain or dental pain Card: Denies: chest pain Resp: Denies: dyspnea GI: Denies: abdominal pain, nausea, vomiting or diarrhea Musc: Denies: neck pain or back pain Skin/Breast: Reports: erythema Neuro: Denies: headache(s) PFSH ED PFSH: Medical History Adjustment insomnia Anxiety and depression Back soft tissue injury Carpal tunnel syndrome, bilateral Generalized anxiety disorder Major depressive disorder, recurrent severe without psychotic features With anxious distress Methamphetamine dependence Clean date is 04/01/22 Nicotine dependence, cigarettes, uncomplicated Otitis media Psychiatric care Severe hearing loss Suicidal behavior with attempted self-injury Surgical History History of delivery Family History Other CAD (coronary artery disease) Cancer Crohn disease Diabetes Hypertension Lung disease Psychiatric illness Social History Smoking and tobacco status: current every day smoker cigarettes Packs smoked per day: 1 Years cigarettes smoked: 8 Second hand smoke exposure: No Smoking risk assessment/counseling performed?: Yes Alcohol intake: former Former alcohol use details: Just every once in a while but none for the last 2 years. Substance/Drug Use: former Date of last use: 04.01.22 Adopted: No Caregiver/support person: No Lives independently: Yes Household members: none Housing: House Marital status: Marital status details: is in [place] [facility] Number of children: 4 Number of grandchildren: 0 Highest education level completed: Associate Degree: Occupational, Technical, Vocational Program service: No Current occupational status: employed Current occupation: [employer] Current occupational exposures/hazards: No Pets and animals: No Leisure activites: other Leisure activities details: watch TV, rock hunting Sexually active: No Do you think of yourself as: Straight/Heterosexual Current gender identity: Female Katja/Buddhist: Nondenominational Special katja needs: No Agree to transfusion: Yes Financial difficulty paying for basics: Not Very Hard Female Reproductive History: Para: 4 Spontaneous abortions: No Physical Exam Const: COMMON NORMALS: no acute distress, patient oriented x3 and healthy appearing HENMT: COMMON NORMALS: normocephalic and atraumatic HEAD & SCALP: normocephalic and atraumatic Neck/C-Spine: COMMON NORMALS: full ROM and supple Chest: COMMONS NORMALS: normal inspection of the chest Resp: COMMON NORMALS: normal respiratory effort Cardio: COMMON NORMALS: No murmurs present (Cardio) Extremity: COMMON NORMALS: normal to inspection and full ROM Neuro: COMMON NORMALS: patient oriented x3, moves all extremities and no focal motor deficits Psych: COMMON NORMALS: mental status grossly normal, Normal thought process present and cooperative THOUGHT PROCESS: Normal thought process present Skin: NARRATIVE SKIN EXAM: erythema to left armpit roughly 3cm diameter. No abscess at this time Course Vital Signs: Vital signs: Vital Signs Temperature 98.6 F 04/05/23 07:24 Pulse Rate 88 04/05/23 07:24 Respiratory Rate 18 04/05/23 07:24 Blood Pressure 115/88 04/05/23 07:24 Pulse Oximetry 97 04/05/23 07:24 Oxygen Delivery Me thod Room Air 04/05/23 07:24 MDM - Extremity (Nontraumatic) Medical Decision Making pt presents here with abscess that she likely had drained last nigh. No drainable abscess at this time. she does have surrounding cellulitis and will add clindamycin. She is to follow up with pcp and return if worsening. No radiology studies performed this visit Discharge Plan Discharge Patient Disposition: Home Clinical Impression: Abscess, Cellulitis Condition: Stable Prescriptions: New Naprosyn 500 mg tablet 500 mg PO BID PRN (Reason: pain) Qty: 20 0RF clindamycin HCl 300 mg capsule 300 mg PO Q8H 7 Days Qty: 21 0RF No Action albuterol sulfate [Ventolin HFA] 90 mcg/actuation HFA aerosol inhaler 2 puff inhalation QID PRN (Reason: shortness of breath or wheezing) Qty: 6.7 3RF albuterol sulfate [Ventolin HFA] 90 mcg/actuation HFA aerosol inhaler 2 puff inhalation Q6H PRN (Reason: shortness of breath or wheezing) Qty: 8.5 0RF ibuprofen 800 mg tablet 800 mg PO TID PRN sumatriptan succinate 25 mg tablet See Rx Instructions PO .COMPLEX Qty: 20 0RF Rx Instructions: take 1 tab at onset of headache; if no relief may repeat 1 tab after at least 2 hrs; max = 4 tabs/24 hr PO fluticasone propionate [Flonase Allergy Relief] 50 mcg/actuation spray,suspension 1 spray intranasal DAILY PRN (Reason: allergy symptoms) Qty: 16 0RF Rx Instructions: administer into each nostril buspirone 10 mg tablet 10 mg PO BID Qty: 60 3RF Rx Instructions: Take one tablet twice per day duloxetine [Cymbalta] 20 mg capsule,delayed release(DR/EC) 20 mg PO .morning Qty: 30 2RF Rx Instructions: Take one capsule every morning hydroxyzine pamoate 25 mg capsule 25 mg PO TID PRN (Reason: anxiety) Qty: 90 3RF Rx Instructions: Take one capsule three times per day as needed for anxiety ondansetron 8 mg tablet,disintegrating 8 mg PO DAILY PRN (Reason: nausea and vomiting) 30 Days Qty: 30 1RF Rx Instructions: Take one tablet daily as needed for nausea/vomiting cephalexin 500 mg capsule 500 mg PO TID 10 Days Qty: 30 0RF fluticasone propionate 50 mcg/actuation spray,suspension See Rx Instructions .ROUTE .COMPLEX Qty: 16 1RF Dose Instruction: SPRAY 1 SPRAY INTO EACH NOSTRIL EVERY DAY Rx Instructions: SPRAY 1 SPRAY INTO EACH NOSTRIL EVERY DAY meloxicam 7.5 mg tablet 7.5 mg PO BIDWMEAL Qty: 60 5RF Tylenol Extra Strength 500 mg Tablet 500 mg PO QID PRN (Reason: Pain) Discharge Orders: Discharge ED (Routine); Ordered 04/05/23 Ordered By: Omaira Syed Referrals: Lemuel Edwards MD [Primary Care Provider] - 1-3 days Discharge Diet: Advance as tolerated Discharge Activity: Resume usual activity Patient Instructions: Cellulitis (ED) Coding Level of Care Code ED Registered Dental Assistant Rda for Maddi Bhatti
[2023-04-05] MEDS: HYDROcodone-acetaminophen 5-325 mg Tablet 1 TAB PO (07:36)
[2023-04-05] MEDS: cefTRIAXone 1,000 MG in water for injection-sterile 2.1 ML 2.1 MG IM (07:37)
[2023-04-05 07:44] VITALS: BP 131/92; PULSE 88; RESP 16; O2SAT 97
[2023-04-05 07:50] VITALS: BP 131/92; PULSE 88; RESP 16; O2SAT 97
== END 2023-04-05 07:52 | disposition home or self-care (01) ==
PROVIDERS: Emergency Provider Emergency Medicine; PCP Family Medicine Adult Medicine
DX: L02.412 Cutaneous abscess of left axilla (principal); L03.112 Cellulitis of left axilla; F17.210 Nicotine dependence, cigarettes, uncomplicated
CPT/HCPCS: 96372; 99284; J0696

== ENCOUNTER → 2023-12-04 12:04 | Outpatient (BNVA) | payer OTHER, SELFPAY ==
[2023-09-13 12:53] VITALS: BP 122/73; BMI 39.9
== END ==
PROVIDERS: PCP Family Medicine Adult Medicine; Visit Provider Nurse Practitioner Psychiatric/Mental Health
DX: F41.1 Generalized anxiety disorder (principal); F33.2 Major depressive disorder, recurrent severe without psychotic features; Z79.899 Other long term (current) drug therapy
CPT/HCPCS: 80061; 83036

== ENCOUNTER 2024-01-09 15:09 | Emergency (ER) | payer BC, MEDICAID, SELFPAY ==
[2024-01-05 11:46] VITALS: BP 126/80; BMI 38.0
--- NOTE | 2024-01-09 15:12 | XR_ITS ---
WS: [id number] Exam: XR shoulder RT min 2V* [id number] Date/Time of Exam: 01/09/2024 3:21 PM Reason For Exam: pain No fracture or dislocation. The joints are preserved. Normal soft tissues. XR/XR shoulder RT min 2V* [id number] IMPRESSION: 1. Negative RIGHT shoulder.
[2024-01-09 15:22] VITALS: BP 105/67; PULSE 92; RESP 20; TEMP 36.8; O2SAT 98; BMI 39.9
--- NOTE | 2024-01-09 15:52 | ED_ITS ---
HPI - Extremity Injury (Upper) General: Chief Complaint: Extremity Injury, Upper Stated Complaint: right shoulder pain Time Seen by Provider: 01/09/24 15:45 Source: patient Mode of arrival: ambulatory Limitations: no limitations History of Present Illness: Patient is a 34-year-old female presents to ED today with complaint of right shoulder pain. Patient states she does a lot of repetitive movements at work and states she has had pain in the shoulder for approximately 6 months. Patient states she eventually broke down and went to urgent care last week and placed on methocarbamol. She states this is helping somewhat but continues to have pain. She states she has never seen her primary care provider for this complaint. MD complaint: injury to: right and shoulder Onset (ago): month(s) Other Extremity Injury: Right: shoulder Other injuries: none Place: home Severity: severe Relieving factors: none Exacerbating factors: movement of extremity Associated symptoms: Reports no associated symptoms; Denies neck pain or weakness in extremities Review of Systems Const: Denies: fever(s) Card: Denies: chest pain Resp: Denies: dyspnea Musc: Reports: joint pain; Denies: neck pain, back pain, extremity pain, extremity swelling, joint swelling or joint redness Neuro: Denies: numbness in extremities, weakness in extremities or sensory changes PFS ED PFSH: Medical History Nicotine dependence due to vaping tobacco product Methamphetamine use disorder, severe, in sustained remission sobriety date 04/01/22 Generalized anxiety disorder Nicotine dependence, cigarettes, uncomplicated Major depressive disorder, recurrent severe without psychotic features With anxious distress Psychiatric care Otitis media Back soft tissue injury Carpal tunnel syndrome, bilateral Adjustment insomnia Severe hearing loss Surgical History History of delivery Family History Other CAD (coronary artery disease) Cancer Crohn's disease Diabetes Hypertension Lung disease Psychiatric illness Social History Smoking and tobacco/nicotine status: current every day tobacco/nicotine user cigarettes Packs smoked per day: 5 Years cigarettes smoked: 9 and e-cigarettes E-Cigarette Details: e-cigarette and with nicotine E-cig/vape details: takes two weeks to go through a disposable vape Second hand smoke exposure: No Alcohol intake: former Former alcohol use details: Just every once in a while but none for the last 2 years. 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, working at a [employer] now Current occupational exposures/hazards: No Pets and animals: Yes (Rat named Mayra) Leisure activites: other Leisure activities details: spend time with children Sexually active: No Do you think of yourself as: Straight/Heterosexual Current gender identity: Female Katja/Religious: Cheondoism Special katja needs: No Agree to transfusion: Yes Female Reproductive History: Para: 4 Spontaneous abortions: No Physical Exam Const: COMMON NORMALS: patient oriented x3, no limitations, alert and well nourished GENERAL APPEARANCE: cooperative NUTRITIONAL APPEARANCE: obese ORIENTATION/CONSCIOUSNESS: Yes awake, Yes oriented to person, Yes oriented to place and Yes oriented to time HENMT: COMMON NORMALS: normocephalic and atraumatic HEAD & SCALP: normal to inspection, normocephalic and atraumatic Neck/C-Spine: COMMON NORMALS: full ROM GENERAL: No normal visual inspection CERVICAL SPINE: Yes cervical ROM normal, No Cervical spine tenderness and No Paracervical muscle tenderness Chest: COMMONS NORMALS: normal inspection of the chest and normal palpation of entire chest wall Resp: COMMON NORMALS: normal respiratory effort and clear to auscultation bilaterally AUSCULTATION: clear to auscultation bilaterally Cardio: COMMON NORMALS: regular rate and regular rhythm RATE: regular rate RHYTHM: regular rhythm Back/Pelvis: COMMON NORMALS: thoracic and lumbar spine normal to inspection Extremity: GENERAL: Yes normal exam except as noted RIGHT UPPER EXTREMITY: Yes shoulder joint (TTP posterior shoulder) Right shoulder: Yes Right shoulder joint inspection exam (normal gross inspection), Yes palpation, Yes Right shoulder joint ROM exam (limited secondary to pain) and Yes Right shoulder joint neurovascular exam (normal) Neuro: COMMON NORMALS: patient oriented x3, moves all extremities, no focal motor deficits and no sensory deficits noted SENSORIUM/ORIENTATION: Yes alert, Yes oriented to person, Yes oriented to place and Yes oriented to time Course Vital Signs: Vital signs: Vital Signs Temperature 98.3 F 01/09/24 15:22 Pulse Rate 92 01/09/24 15:22 Respiratory Rate 20 H 01/09/24 15:22 Blood Pressure 105/67 01/09/24 15:22 Pulse Oximetry 98 01/09/24 15:22 Oxygen Delivery Me thod Room Air 01/09/24 15:22 MDM - Extremity Injury (Upper) Medical Decision Making XR of the shoulder is unremarkable. Pain has been persistent over the past 6 months. She needs to follow-up with her primary care provider. Have her continue anti-inflammatories as needed and place her on a prednisone taper. She does not want to further take any more muscle relaxers. Medical Records I reviewed the patient's medical records. Lab Data Radiology Impressions Shoulder X-Ray 01/09/24 15:12 IMPRESSION: 1. Negative RIGHT shoulder. All radiology interpretation(s) finalized by discharge Discharge Plan Discharge Patient Disposition: Home Clinical Impression: Chronic pain in right shoulder Condition: Stable Prescriptions: New prednisone 10 mg tablet 10 mg PO DAILY 7 Days Qty: 27 0RF Rx Instructions: 6 tabs on days 1-2, 5 tabs on days 3, 4 tabs on day 4, 3 tabs on day 5, 2 tabs on day 6, 1 tab on day 7 ibuprofen 800 mg tablet 800 mg PO Q8H PRN (Reason: pain) Qty: 20 0RF Discontinued meloxicam 7.5 mg tablet 7.5 mg PO BIDWMEAL Qty: 60 5RF No Action albuterol sulfate [Ventolin HFA] 90 mcg/actuation HFA aerosol inhaler 2 puff inhalation QID PRN (Reason: shortness of breath or wheezing) Qty: 6.7 3RF albuterol sulfate [Ventolin HFA] 90 mcg/actuation HFA aerosol inhaler 2 puff inhalation Q6H PRN (Reason: shortness of breath or wheezing) Qty: 8.5 0RF mupirocin 2 % ointment 1 applic topical TID Qty: 22 0RF ibuprofen 800 mg tablet 800 mg PO TID PRN (Reason: pain) Qty: 30 0RF methocarbamol 750 mg tablet 750 mg PO TID Qty: 15 0RF sumatriptan succinate 25 mg tablet See Rx Instructions PO .COMPLEX Qty: 20 0RF Rx Instructions: take 1 tab at onset of headache; if no relief may repeat 1 tab after at least 2 hrs; max = 4 tabs/24 hr PO fluticasone propionate [Flonase Allergy Relief] 50 mcg/actuation spray,suspension 1 spray intranasal DAILY PRN (Reason: allergy symptoms) Qty: 16 0RF Rx Instructions: administer into each nostril duloxetine [Cymbalta] 60 mg capsule,delayed release(DR/EC) 60 mg PO .morning Qty: 30 6RF Rx Instructions: Take one capsule every morning hydroxyzine pamoate 25 mg capsule 25 mg PO TID PRN (Reason: anxiety) Qty: 90 3RF Rx Instructions: Take one capsule three times per day as needed for anxiety buspirone 15 mg tablet 15 mg PO BID Qty: 60 6RF Rx Instructions: Take one tablet twice per day ondansetron 8 mg tablet,disintegrating 8 mg PO DAILY PRN (Reason: nausea and vomiting) 30 Days Qty: 30 1RF Rx Instructions: Take one tablet daily as needed for nausea/vomiting Tylenol Extra Strength 500 mg Tablet 500 mg PO QID PRN (Reason: Pain) Discharge Orders: Discharge ED (Routine); Ordered 01/09/24 Ordered By: Felisa Griffin Referrals: Lemuel Edwards MD [Primary Care Provider] - Activity Restrictions/Additional Instructions: As we discussed we would like you to follow-up with primary care provider, Dr. Edwards for further treatment of your shoulder pain which may include further imaging or physical therapy. Coding Level of Care Code ED Irrigation Tax Assessor Collector for Maddi Bhatti
[2024-01-09] MEDS: dexamethasone 10 mg/mL INJ IM (16:30)
[2024-01-09 16:36] VITALS: BP 107/69; PULSE 86; RESP 16; TEMP 36.8; O2SAT 99
== END 2024-01-09 16:34 | disposition home or self-care (01) ==
PROVIDERS: Emergency Provider Physician Assistant; PCP Family Medicine Adult Medicine
DX: G89.29 Other chronic pain (principal); M25.511 Pain in right shoulder; F17.210 Nicotine dependence, cigarettes, uncomplicated; F17.290 Nicotine dependence, other tobacco product, uncomplicated
CPT/HCPCS: 73030; 96372; 99284; J1100

== ENCOUNTER → 2024-04-09 17:39 | Outpatient (BNVA) | payer BC, SELFPAY ==
[2024-01-15 08:19] VITALS: BP 126/80; BMI 38.0
== END ==
PROVIDERS: Visit Provider Emergency Medicine
DX: R09.81 Nasal congestion (principal)
CPT/HCPCS: 87426

== ENCOUNTER → 2024-07-30 10:21 | Outpatient (BNVA) | payer BC, SELFPAY ==
[2024-01-15 08:19] VITALS: BP 126/80; BMI 38.0
== END ==
DX: J02.9 Acute pharyngitis, unspecified (principal)
CPT/HCPCS: 87071; 87880

== ENCOUNTER → 2024-10-01 14:55 | Outpatient (BNVA) | payer BC, SELFPAY ==
[2024-01-15 08:19] VITALS: BP 126/80; BMI 38.0
== END ==
PROVIDERS: PCP Family Medicine; Visit Provider Family Medicine
DX: K51.90 Ulcerative colitis, unspecified, without complications (principal)
CPT/HCPCS: 80053; 85025

== ENCOUNTER 2024-10-15 14:39 | Outpatient (CLI) | payer BC, MEDICAID, SELFPAY ==
[2024-01-15 08:19] VITALS: BP 126/80; BMI 38.0
--- NOTE | 2024-10-15 15:00 | MR_ITS ---
WS: [id number] MRI RIGHT SHOULDER NONCONTRAST TECHNIQUE: Sagittal T2, coronal T1, T2 and proton density imaging. Axial gradient PDE imaging. CLINICAL INFORMATION: R shoulder pain X 1 yr; x-rays neg COMPARISON: None. FINDINGS: Moderate degenerative changes AC joint. Moderate downsloping acromion with subacromial spurring. Impingement on the distal supraspinatus. Tiny intrasubstance tear distal supraspinatus. Tendinopathy infraspinatus and supraspinatus. Trace subacromial fluid. Normal teres minor. Subscapularis tendon appears intact. Biceps tendon appears intact within the bicipital groove. Intra-articular biceps tendon appears intact. MR/MR shoulder RT wo con* [id number] IMPRESSION: 1. Moderate degenerative changes AC joint. Moderate downsloping acromion wit h subacromial spurring. Impingement on the distal supraspinatus. 2. Tiny intrasubstance tear distal supraspinatus. 3. Tendinopathy supraspinatus and infraspinatus. 4. Normal biceps tendon.
== END 2024-10-15 14:40 | disposition home or self-care (01) ==
PROVIDERS: PCP Family Medicine; Visit Provider Family Medicine
DX: M19.011 Primary osteoarthritis, right shoulder (principal); G89.29 Other chronic pain; M75.41 Impingement syndrome of right shoulder; M77.8 Other enthesopathies, not elsewhere classified; M67.813 Other specified disorders of tendon, right shoulder
CPT/HCPCS: 73221

== ENCOUNTER → 2024-10-22 10:47 | Outpatient (BNVA) | payer BC, MEDICAID, SELFPAY ==
[2024-01-15 08:19] VITALS: BP 126/80; BMI 38.0
== END ==
PROVIDERS: PCP Family Medicine; Visit Provider Orthopaedic Surgery
DX: M19.011 Primary osteoarthritis, right shoulder (principal); G89.29 Other chronic pain
CPT/HCPCS: 73030

== ENCOUNTER 2024-11-20 08:43 | Day surgery (SDC) | payer BC, MEDICAID, SELFPAY ==
[2024-01-15 08:19] VITALS: BP 126/80; BMI 38.0
[2024-11-20] VITALS (11 sets, daily range): BP systolic 118–153; BP diastolic 77–109; PULSE 68–105; RESP 16–18; TEMP 36.1–36.6; O2SAT 91–98; BMI 40.9
[2024-11-20] MEDS: sodium chloride 0.9% 1,000 ML 30 ML IV (09:19)
[2024-11-20 09:24] LABS: OR HCG Qualitative Urine Negative (Negative)
--- NOTE | 2024-11-20 09:38 | ANES.PREANE2 ---
Pre-Anesthetic Assessment Height/Weight: Height 5 ft 2 in Weight 224 lb Temp Pulse Resp BP Pulse Ox O2 Del Method 97.0 F L 89 17 118/77 96 Room Air 11/20/24 09:02 11/20/24 09:02 11/20/24 09:02 11/20/24 09:02 11/20/24 09:02 11/20/24 09:02 Preop Diagnosis: Shoulder pain Operation Date: 11/20/24 10:20 Proposed Procedures p RIGHT Shoulder Arthroscopy and Decompression(Right) - Myles Rizzo MD Was [place] taken within 24 hours: N/A Was Clonidine taken within 24 hours: N/A Last intake: Intake Last Liquid Date 11/19/24 Last Liquid Time 21:00 Last Solid Date 11/19/24 Last Solid Time 21:00 Social Tobacco and No alcohol Exam alert, oriented x 3, clear to auscultation bilaterally and regular rate & rhythm Airway Submandibular: within normal limits Cervical ROM: within normal limits Mallampati: Class III Comments: Comments: Poor dentition, denies any loose Anesthetic Plan ASA status: 3 Anesthesia: General Other: No prior issues with anesthesia NPO since yesterday evening BMI 41 Current smoker Prior methamphetamine abuse, sober for 3 years now. Labs reviewed and acceptable for procedure Plan for general anesthesia with preop nerve block Medications/Allergies Home Medications ?Medication ?Instructions ?Recorded ?Confirmed ?Last Taken ?Type acetaminophen 500 mg tablet 500 mg PO QID PRN Pain 11/23/20 11/20/24 11/13/24 History (Tylenol Extra Strength) albuterol sulfate 90 mcg/actuation 2 puff inhalation Q6H PRN 01/23/24 11/20/24 11/13/24 Rx aerosol inhaler (Ventolin HFA) shortness of breath or wheezing #8.5 grams hydrocortisone 1 %-pramoxine 1 % 1 applic VA QID PRN hemorrhoids 05/29/24 11/20/24 11/13/24 Rx rectal foam (Proctofoam HC) #10 grams buspirone 15 mg tablet 15 mg PO BID #180 tabs 09/24/24 11/20/24 11/13/24 Rx hydroxyzine HCl 25 mg tablet 25 mg PO BID PRN anxiety #60 tabs 09/24/24 11/20/24 11/13/24 Rx hydrocortisone acetate 25 mg 25 mg VA BID 6 days #12 ea 10/01/24 11/20/24 11/13/24 Rx rectal suppository meloxicam 7.5 mg tablet 7.5 mg PO BID PRN Pain 11/19/24 11/20/24 11/13/24 History methocarbamol 750 mg tablet 750 mg PO TID PRN Pain 11/19/24 11/20/24 11/13/24 History sumatriptan succinate 25 mg tablet 25 mg PO PRN PRN Headache 11/19/24 11/19/24 Unknown History Allergies Allergy/AdvReac Type Severity Reaction Status Date / Time COVID-19 vacc, bv (Orig, Allergy Severe ADR-Nausea Verified 11/19/24 09:35 Omicron BA.4/5) (Moderna) (From Moderna COVID Bival(6y up)(PF)) azathioprine (From Imuran) Allergy ALGY-Hives Verified 11/19/24 09:35 Sulfa (Sulfonamide Allergy ALGY-Hives Verified 11/19/24 09:35 Antibiotics) vancomycin Allergy ALGY-Anaphy Verified 11/19/24 09:35 laxis Current Medications Generic Name Dose Route Start Last Admin Trade Name Freq PRN Reason Stop Dose Admin Sodium Chloride 1,000 mls @ 30 mls/hr 11/20/24 09:00 11/20/24 09:19 Sodium Chloride 0.9% IV 11/21/24 08:59 30 mls/hr .Q24H GLORIA Administration PFSH Anesthesia Medical History Ulcerative colitis has had colonoscopies--was going to [facility]--not on any meds; thought it was in remission Chronic pain in right shoulder Sprain of right rotator cuff capsule [facility] 01/14/2024, SUSHMA Simms Nicotine dependence due to vaping tobacco product Methamphetamine use disorder, severe, in sustained remission sobriety date 04/01/22 Generalized anxiety disorder Nicotine dependence, cigarettes, uncomplicated last use was 07/13/24 Major depressive disorder, recurrent severe without psychotic features With anxious distress Psychiatric care Carpal tunnel syndrome, bilateral Adjustment insomnia Severe hearing loss Surgical History History of dental surgery caps on her teeth at age 7 History of placement of ear tubes reports multiple History of bilateral tubal ligation with last History of tonsillectomy 1995 History of delivery X 4 Family History Mother Cancer cervical Psychiatric illness and substance abuse Other CAD (coronary artery disease) Crohn's disease Diabetes Hypertension Lung disease Social History Smoking and tobacco/nicotine status: former use of tobacco/nicotine Second hand smoke exposure: No Alcohol intake: former Former alcohol use details: Just every once in a while but none for the last 2 years. 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
--- NOTE | 2024-11-20 10:14 | W.PM.OPSUD ---
Surgery/Procedure H&P Update DATE OF PROCEDURE: November 20, 2024 DATE H&P PERFORMED: 10/31/24 H&P UPDATE INFORMATION: I have reviewed H&P completed within last 30 days, I have examined patient prior to procedure, No changes to prior documentation and Risks and benefits of the procedure reviewed PREOP DIAGNOSIS: Shoulder pain PLANNED PROCEDURE: Operation Date: 11/20/24 10:20 Proposed Procedures p RIGHT Shoulder Arthroscopy and Decompression(Right) - Myles Rizzo MD
--- NOTE | 2024-11-20 10:28 | ANES.PROC ---
Anesthesia Procedures Procedure/Date: 11/20/24 Nerve Block ^: Nerve Block 1: Main Anesthesia: other (100 mcg fentanyl and 2 mg Versed) Time Out Performed: Yes Consent: requested by attending/covering physician and from patient Nerve block location: interscalene Anesthesia monitors applied: pulse oximetry, EKG, BP cuff and oxygen Nerve block position: supine Anesthetic Used: ropivicaine 0.5% Amount of anesthesia used (mL): 30 Ultrasound used to: recognize landmarks Nerve Stimulator Used?: Yes Interscalene/Femoral BLK: other needle (pjunk 4inch) Injection: neg aspiration of heme Patient Tolerated Procedure: well Complications: none Additional Comments: Decadron 4 mg added to block
[2024-11-20] MEDS: ceFAZolin 2,000 mg SDV 2000 MG IVP (10:42)
--- NOTE | 2024-11-20 11:49 | PM.OP ---
Operative Report Date of procedure: November 20, 2024 Surgeon: Myles Rizzo MD Procedure: Preoperative diagnosis: Internal derangement right shoulder with impingement Postop diagnosis: Anterior and superior labral fraying, gross bursitis, acromial impingement with A/C joint arthritis. Procedure: Diagnostic right shoulder arthroscopy with labral debridement, bursectomy, acromioplasty and acromioclavicular joint decompression Surgeon: Myles Rizzo MD Integrity Consultant: MAGGI Bond. Kyra's assistance was necessary for positioning of the patient, assistance during the procedure, wound closures, and transporting patient to PACU Anesthesia: General With preoperative scalene block EBL: 5 cc Indications: Stephanie is a 34-year-old white female's been followed in the orthopedic clinics for some time now with debilitating right shoulder pain. Subsequently she has had an MRI which demonstrated some mild changes in the area however it does demonstrate impingement of the acromion as well as AC arthrosis. She is having impingement type symptoms on clinical exam. There is questionable partial rotator cuff tear also seen on the MRI. Therefore having failed all conservative measures the patient was offered a diagnostic right shoulder arthroscopy with all indicated procedures. All risk benefits treatment alternatives were discussed with her and she is agreeable to this at this time. Procedure: After obtaining consent patient had scalene block administered in preop holding area. Patient was then taken to the operating room placed on the operative table supine on a second sharepoint architect. Once good anesthesia was achieved patient placed under beachchair position with appropriate support and padding. Right shoulder and arm were prepped and draped usual fashion. After surgical timeout standard posterior portals made with a #11 blade. Camera cannulas placed within the glenohumeral joint line posteriorly. Anterior working portal was also placed. Evaluation of the shoulder with a nerve hook demonstrated some fraying of the insertion of the labrum into the anterior glenoid. There is also fraying of the right labrum superiorly with additional redundant tissue. These 2 areas were Further evaluate further evaluation of the shoulder demonstrated intact articular cartilage both on the glenoid and humeral head. Rotator cuff appeared to show normal appearance insertion into the humeral head. At this point camera is redirected in the subacromial bursa. A thermal probe was then used to debride the hypertrophic bursa and soft tissues off the undersurface of the acromion and distal clavicle. Distal clavicle close centimeter bulbous with arthritic changes between that and the acromion. Acromion had a anterior hook impinging down the rotator cuff. Subsequently using a barrel bur decompression of the acromion i.e. acromioplasty was done. Then decompression of the AC joint was done also with the bur. Shoulders washed sterile irrigation and then all cannulas removed. Wounds were closed with 3-0 Prolene interrupted sutures. Then dressed with Xeroform gauze sterile gauze dressing ABDs and adhesive tape. Patient is placed in a regular arm sling awakened transferred to cover room stable condition debrided with mechanical shaver down to stable cartilaginous space.
--- NOTE | 2024-11-20 13:55 | ANE.PACU2 ---
Inpatient post-anesthesia follow up: Airway intact: Yes Vital signs: Temperature 97.1 F Pulse Rate 68 Respiratory Rate 18 Blood Pressure 124/90 Pulse Oximetry 97 Oxygen Delivery Me thod Room Air Oxygen Flow Rate Fraction of Inspir ed Oxygen Hydration adequate: Yes Nausea and vomiting: No Pain level: 1 Mental status: Baseline
== END 2024-11-20 13:55 | disposition home or self-care (01) ==
PROVIDERS: PCP Family Medicine; Visit Provider Orthopaedic Surgery
PROC: (CPT 29805; principal; 2024-11-20 10:00)
DX: M75.41 Impingement syndrome of right shoulder (principal); M25.811 Other specified joint disorders, right shoulder; M75.51 Bursitis of right shoulder; Z79.899 Other long term (current) drug therapy; Z88.2 Allergy status to sulfonamides; Z88.1 Allergy status to other antibiotic agents; Z88.8 Allergy status to other drugs, medicaments and biological substances; Z87.891 Personal history of nicotine dependence
CPT/HCPCS: 29823; 29826; 81025; J0690; J1100; J2371; J2405; J2704; J3010; J3490; J7030; J9999

== ENCOUNTER → 2025-01-01 07:37 | Outpatient (BNVA) | payer BC, SELFPAY ==
[2024-01-15 08:19] VITALS: BP 126/80; BMI 38.0
== END ==
PROVIDERS: PCP Family Medicine
DX: M25.471 Effusion, right ankle (principal); M25.472 Effusion, left ankle
CPT/HCPCS: 73610

== ENCOUNTER → 2025-01-24 15:38 | Outpatient (BNVA) | payer BC, MEDICAID, SELFPAY ==
[2024-01-15 08:19] VITALS: BP 126/80; BMI 38.0
== END ==
PROVIDERS: PCP Family Medicine; Visit Provider Family Medicine
DX: Z12.4 Encounter for screening for malignant neoplasm of cervix (principal)
CPT/HCPCS: 87624